=== PATIENT | female | born 1990 | race Hispanic/Latino ===

== ENCOUNTER 2021-06-04 15:16 | Emergency (ER) | payer BC ==
--- NOTE | 2021-06-04 16:55 | RAD REPORT ---
EXAM DESCRIPTION: Kirt Single View06/04/2021 4:39 pm CLINICAL HISTORY: cough COMPARISON: none FINDINGS: Moderate bilateral pulmonary opacities. The heart is normal size IMPRESSION: Moderate bilateral pulmonary opacities likely pneumonia
[2021-06-04 17:04] LABS: Absolute Lymphocytes (CBC) 0.6 K/uL (0.7-4.9); Basophils % 0.2 % (0-1.3); Hematocrit 39.9 % (36.0-45.0); Lymphocytes % 11.8 % (15.3-44.8); MPV 8.8 fL (7.6-11.3); RBC Red Blood Cell Count 4.99 M/uL (3.86-4.86)
[2021-06-04] MEDS ORDERED: dexAMETHasone 10 MG/ML VIAL ONE (17:36)
[2021-06-04] MEDS ORDERED: MAGNESIUM SULFATE 1 gm IVPB 1 GM/100 ML BAG IV ONE (17:36)
[2021-06-04] MEDS ORDERED: LEVALBUTEROL 1.25 MG/3 ML NEB ONE (17:36)
[2021-06-04 17:54] LABS: ALT/SGPT 44 U/L (12-78); AST/SGOT 29 U/L (15-37); Albumin 3.5 g/dL (3.4-5.0); Alkaline Phosphatase 101 U/L (45-117); BUN Blood Urea Nitrogen 7 mg/dL (7-18); Bicarbonate 27 mmol/L (21-32); Bilirubin Total 0.3 mg/dL (0.2-1.0); Glucose Level 122 mg/dL (74-106); Potassium 3.8 mmol/L (3.5-5.1); Protein, Total 8.5 g/dL (6.4-8.2); Sodium Level 139 mmol/L (136-145)
--- NOTE | 2021-06-04 19:20 | ER ---
Nurse's Notes [facility] Name: Sera St Age: 31 yrs Sex: Female : 1990 Arrival Date: 06/04/2021 Time: 15:19 Bed 28 Private MD: Diagnosis: Coronavirus infection, unspecified Presentation: 06/04 15:43 Chief complaint: Spouse and/or significant other states: SOB, cough x 2 days. Covid + kg 05/30. Coronavirus screen: Client denies travel out of the [place] in the last 14 days. At this time, unable to obtain information related to travel outside the [place] Ebola Screen: Patient negative for fever greater than or equal to 101.5 degrees Fahrenheit, and additional compatible Ebola Virus Disease symptoms Patient denies exposure to infectious person. Patient denies travel to an Ebola-affected area in the 21 days before illness onset. Initial Sepsis Screen: Does the patient meet any 2 criteria? RR > 20 per min. HR > 90 bpm. Does the patient have a suspected source of infection? Yes: Productive cough/pneumonia. Risk Assessment: Do you want to hurt yourself or someone else? Patient reports no desire to harm self or others. Onset of symptoms was June 01, 2021. 15:43 Method Of Arrival: Ambulatory kg 15:43 Acuity: SUNG 3 kg Triage Assessment: 15:45 General: Appears in no apparent distress. Behavior is calm, cooperative, appropriate kg for age, quiet. Pain: Complains of pain in chest. Respiratory: Reports shortness of breath at rest on exertion cough that is productive, pain with cough pain with respiration Onset: The symptoms/episode began/occurred 2 days , the patient has mild shortness of breath. 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 - Social history:: Smoking status: Patient denies any tobacco usage or history of. Screenin:49 Abuse screen: Denies threats or abuse. Denies injuries from another. Nutritional kg screening: No deficits noted. Tuberculosis screening: No symptoms or risk factors identified. Fall Risk None identified. Assessment: 16:45 Reassessment: Patient appears in no apparent distress at this time. Patient and/or zb family updated on plan of care and expected duration. Pain level reassessed. Patient is alert, oriented x 3, equal unlabored respirations, skin warm/dry/pink. 17:45 Reassessment: Patient appears in no apparent distress at this time. Patient and/or zb family updated on plan of care and expected duration. Pain level reassessed. Patient is alert, oriented x 3, equal unlabored respirations, skin warm/dry/pink. 18:45 Reassessment: Patient appears in no apparent distress at this time. Patient and/or zb family updated on plan of care and expected duration. Pain level reassessed. Patient is alert, oriented x 3, equal unlabored respirations, skin warm/dry/pink. IV medication infusing. 19:37 Reassessment: Patient appears in no apparent distress at this time. Patient and/or zb family updated on plan of care and expected duration. Pain level reassessed. Patient is alert, oriented x 3, equal unlabored respirations, skin warm/dry/pink. 19:40 Cardiovascular: Rhythm is sinus tachycardia. Respiratory: Airway. Respiratory: Airway zb is patent Trachea midline Respiratory effort is even, unlabored, Breath sounds are diminished. Vital Signs: 15:43 BP 155 / 107; Pulse 122; Resp 24; Temp 100.0(O); Pulse Ox 92% ; Weight 115.67 kg (R); kg Height 5 ft. 2 in. (157.48 cm); Pain 7/10; 17:22 BP 129 / 96; Pulse 114; Resp 20; Pulse Ox 97% on R/A; zb 18:00 BP 139 / 77; Pulse 123; Resp 20; Pulse Ox 92% on R/A; zb 19:00 BP 139 / 78; Pulse 100; Resp 18; Pulse Ox 91% on R/A; zb 15:43 Body Mass Index 46.64 (115.67 kg, 157.48 cm) kg ED Course: 15:19 Patient arrived in ED. as 15:45 Triage completed. kg 15:45 Arm band placed on right wrist. kg 15:49 Patient has correct armband on for positive identification. kg 15:53 Declan Chamorro PA is PHCP. jmm 15:53 Per Alonzo MD is Attending Physician. jmm 16:09 Kat Gomez, ISH is Primary Nurse. zb 16:30 Inserted saline lock: 20 gauge in left antecubital area, using aseptic technique. Blood dh4 collected. 16:39 Chest Single View In Process Unspecified. EDMS 19:40 No provider procedures requiring assistance completed. IV discontinued, intact, zb bleeding controlled, No redness/swelling at site. Pressure dressing applied. Administered Medications: 17:18 Drug: Decadron - Dexamethasone 10 mg Route: IVP; Site: left antecubital; zb 18:00 Follow up: Response: No adverse reaction zb 17:18 Drug: Magnesium Sulfate 1 grams Route: IVPB; Infused Over: 1 hrs; Site: left zb antecubital; 18:00 Follow up: Response: No adverse reaction; IV Status: Completed infusion; IV Intake: zb 1000ml 17:18 Drug: Xopenex (levalbuterol) (3) 1.25 mg Route: Inhalation; zb 18:00 Follow up: Response: No adverse reaction zb Intake: 18:00 IV: 1000ml; Total: 1000ml. zb Outcome: 19:19 Discharge ordered by . m 19:41 Discharged to home ambulatory. zb 19:41 Condition: stable 19:41 Discharge instructions given to patient, Instructed on discharge instructions, follow up and referral plans. medication usage, Demonstrated understanding of instructions, follow-up care, medications, Prescriptions given X 3. 19:41 Patient left the ED. zb Signatures: Dispatcher [employer] EDMS Declan Chamorro PA PA jmm Martinez, Amelia as Huhn, Donald dh4 Kat Gomez, RN RN zb Yvette Mathew RN RN kg
--- NOTE | 2021-06-04 19:20 | EDPHYS ---
Physician Documentation [facility] Name: Sera St Age: 31 yrs Sex: Female : 1990 Arrival Date: 06/04/2021 Time: 15:19 Bed 28 Private MD: ED Physician Per Alonzo HPI: 06/04 16:23 This 31 yrs old Female presents to ER via Ambulatory with complaints of jmm Shortness Of Breath - covid+. 16:23 The patient has shortness of breath at rest. Onset: The symptoms/episode began/occurred jmm gradually. 16:48 Duration: The symptoms are continuous, and are steadily getting worse. The patient's jmm shortness of breath is aggravated by nothing, is alleviated by nothing. Associated signs and symptoms: Pertinent positives: non-productive cough. The patient has not experienced similar symptoms in the past. 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 - Social history:: Smoking status: Patient denies any tobacco usage or history of. ROS: 16:48 Cardiovascular: Negative for chest pain, palpitations, and edema. jmm 16:48 Constitutional: Positive for fever. 16:48 Respiratory: Positive for cough, shortness of breath. 16:48 All other systems are negative. Exam: 16:48 Constitutional: This is a well developed, well nourished patient who is awake, alert, jmm and in no acute distress. Head/Face: atraumatic. Eyes: EOMI, no conjunctival erythema appreciated ENT: Moist Mucus Membranes Neck: Trachea midline, Supple Chest/axilla: Normal chest wall appearance and motion. 16:48 Abdomen/GI: Non distended, soft Back: Normal ROM Skin: General appearance color normal MS/ Extremity: Moves all extremities, no obvious deformities appreciated, no edema noted to the lower extremities Neuro: Awake and alert, normal gait Psych: Behavior is normal, Mood is normal, Patient is cooperative and pleasant 16:48 Cardiovascular: Rate: tachycardic, Rhythm: regular. 16:48 Respiratory: the patient does not display signs of respiratory distress, Respirations: normal, Breath sounds: are clear throughout. Vital Signs: 15:43 BP 155 / 107; Pulse 122; Resp 24; Temp 100.0(O); Pulse Ox 92% ; Weight 115.67 kg (R); kg Height 5 ft. 2 in. (157.48 cm); Pain 7/10; 17:22 BP 129 / 96; Pulse 114; Resp 20; Pulse Ox 97% on R/A; zb 18:00 BP 139 / 77; Pulse 123; Resp 20; Pulse Ox 92% on R/A; zb 19:00 BP 139 / 78; Pulse 100; Resp 18; Pulse Ox 91% on R/A; zb 15:43 Body Mass Index 46.64 (115.67 kg, 157.48 cm) kg MDM: 16:22 Patient medically screened. [facility] 19:18 Data reviewed: vital signs, nurses notes, lab test result(s), radiologic studies, plain [facility] films. ED course: Patient is alert nontoxic in appearance in the ED. Oxygen saturation is around 90 to 92%. Patient was offered monoclonal antibodies but declined. Patient prescribed steroids and otherwise given strict return precautions.. 06/04 16:09 Order name: CBC with Diff [facility] 06/04 16:09 Order name: CMP [facility] 06/04 16:09 Order name: D-Dimer [facility] 06/04 16:09 Order name: CBC with Automated Diff; Complete Time: 17:21 [facility] 06/04 16:09 Order name: Comprehensive Metabolic Panel; Complete Time: 17:57 [facility] 06/04 16:09 Order name: D-Dimer; Complete Time: 17:36 [facility] 06/04 15:51 Order name: Chest Single View; Complete Time: 16:58 [facility] 06/04 16:09 Order name: Saline Lock; Complete Time: 16:30 [facility] Administered Medications: 17:18 Drug: Decadron - Dexamethasone 10 mg Route: IVP; Site: left antecubital; zb 18:00 Follow up: Response: No adverse reaction zb 17:18 Drug: Magnesium Sulfate 1 grams Route: IVPB; Infused Over: 1 hrs; Site: left zb antecubital; 18:00 Follow up: Response: No adverse reaction; IV Status: Completed infusion; IV Intake: zb 1000ml 17:18 Drug: Xopenex (levalbuterol) (3) 1.25 mg Route: Inhalation; zb 18:00 Follow up: Response: No adverse reaction zb Disposition: 06/05 09:23 Co-signature as Attending Physician, Per Alonzo MD I agree with the assessment and víctor plan of care. Disposition Summary: 06/04/21 19:19 Discharge Ordered Location: Home [facility] Condition: Stable [facility] Diagnosis - Coronavirus infection, unspecified [facility] Followup: [facility] - With: Private Physician - When: 2 - 3 days - Reason: Recheck today's complaints, Continuance of care, Re-evaluation by your physician Discharge Instructions: - Discharge Summary Sheet [facility] - COVID-19 [facility] Forms: - Medication Reconciliation Form [facility] - Thank You Letter [facility] - Antibiotic Education [facility] - Prescription Opioid Use [facility] Prescriptions: - ivermectin 3 mg Oral tablet - take 6 tablet by ORAL route as directed Please take 6 tabs by mouth today and m another 6 tabs by mouth on day 3; 12 tablet; Refills: 0, Product Selection Permitted - Prednisone 20 mg Oral Tablet - take 3 tablets by ORAL route once daily for 5 days; 15 tablet; Refills: 0, [facility] Product Selection Permitted - Zithromax Z-Sarthak 250 mg Oral Tablet - take 1 tablet by ORAL route as directed for 5 days Day 1 - take two (2) tablets [facility] one time. Day 2, 3, 4 , 5 take one (1) tablet once daily.; 6 tablet; Refills: 0, Product Selection Permitted Signatures: Dispatcher [employer] Per Anthony MD MD cha Mickail, Joel, PA PA Kat Patricia RN RN zb Graham, Kristen, RN RN kg Corrections: (The following items were deleted from the chart) 06/04 15:51 15:50 Chest Pa And Lat (2 Views)+[email or web address] ordered. EDMS EDMS
[2021-06-04 19:49] VITALS: TEMP 100
[2021-06-04 19:53] VITALS: BP 139/78; O2SAT 91
== END 2021-06-04 19:41 | disposition home or self-care (01) ==
LOC: ER 15:16
DX: U07.1 COVID-19 (principal)
CPT/HCPCS: 96365; 85025; 36415; 85379; 80053; 71045; 96375; 99285; J3475; J1100